=== PATIENT | male | born 1960 | race Hispanic/Latino ===

== ENCOUNTER 2017-10-26 08:36 | Outpatient (CLI) | payer OTHER ==
[2017-10-26 09:25] LABS: Blood Urea Nitrogen 10 mg/dL (9-20)
[2017-10-26] MEDS ORDERED: NACL ONE (09:49)
--- NOTE | 2017-10-26 10:25 | Cat Scan Report ---
CTA CHEST: HISTORY: Aortic aneurysm. COMPARISON: 07/13/16. TECHNIQUE: Helical CT in 1.25mm intervals following IV contrast. Sagittal and coronal reformatted images. Rotational MIP images. FINDINGS: Mild dilatation of the ascending aorta appears stable with maximum diameter measuring 4.3 cm. This is unchanged since 07/13/16. The aortic arch measures 2.8 cm in diameter. The descending thoracic aorta measures 2.6 cm in diameter. Minimal atherosclerotic plaques are noted in the aortic arch. No dissection or ulceration. The central pulmonary arteries are within normal limits. Thyroid gland: Normal. Tracheobronchial tree: Normal. Esophagus: Normal. Heart: Normal. Pericardium: Normal. Mediastinum: Normal. Lung Wahl: Normal. Pleural Spaces: Normal. Musculoskeletal: Mild thoracic spondylosis is noted. No fracture or suspicious bony lesion. IMPRESSION: Stable 4.3 cm ascending aortic aneurysm since 07/13/16.
== END 2017-10-26 08:37 | disposition home or self-care (01) ==
LOC: CT 08:36
PROVIDERS: ATTEND Internal Medicine
DX: I71.2 Thoracic aortic aneurysm, without rupture (principal); M47.894 Other spondylosis, thoracic region
CPT/HCPCS: 36415; 71275; 82565; 84520; Q9967

== ENCOUNTER 2019-08-21 08:35 | Outpatient (CLI) | payer OTHER ==
[2019-08-21 09:11] LABS: Blood Urea Nitrogen 12 mg/dL (9-20)
== END 2019-08-21 08:36 | disposition home or self-care (01) ==
LOC: CT 08:35
PROVIDERS: ATTEND Internal Medicine
DX: I71.2 Thoracic aortic aneurysm, without rupture (principal); Z82.49 Family history of ischemic heart disease and other diseases of the circulatory system
CPT/HCPCS: 36415; 71275; 82565; 84520; Q9967

== ENCOUNTER 2020-08-25 08:26 | Outpatient (CLI) | payer OTHER ==
[2020-08-25 09:15] LABS: Blood Urea Nitrogen 14 mg/dL (9-20)
--- NOTE | 2020-08-25 11:57 | Cat Scan Report ---
CT angio chest INDICATION: MAIN. TECHNIQUE: All CT scans at this location are performed using CT dose reduction for ALARA by means of automated e xposure control. 3-D MIP and/or reconstruction images were produced. COMPARISON: 08/21/2019 FINDINGS: Mild fusiform dilatation of the ascending thoracic aorta is again demonstrated. By my measurements, m aximum diameter of the ascending aorta is 4.5 cm, both on today's exam and the previous exam one year ago. No evidence of dissection. There is only mild atherosclerosis, with a calcified plaque in the t ransverse aorta. Transverse and descending portions of the thoracic aorta are normal. No evidence of pulmonary embolus. No mediastinal, hilar or axillary adenopathy. No significant pulmon ibis or pleural lesions. IMPRESSION: 1. 4.5 cm fusiform dilatation of the ascending thoracic aorta, unchanged from previous exam. Signer Name: Willis Betancur MD Signed: 08/25/2020 11:53 AM Workstation Name: [id number]
== END 2020-08-25 08:27 | disposition home or self-care (01) ==
LOC: CT 08:26
PROVIDERS: ATTEND Internal Medicine
DX: I71.2 Thoracic aortic aneurysm, without rupture (principal)
CPT/HCPCS: 36415; 71275; 82565; 84520; Q9967